=== PATIENT | male | born 1950 | race Caucasian/White ===

== ENCOUNTER → 2017-11-30 | Outpatient (CLI) | payer MEDICARE, BC, OTHER ==
[~2017-11-30] MED LIST: ALLOPURINOL300 MG PO; ASPIRIN 32325 MG/TAB PO; CARVEDILOL3.125 MG PO; COREG12.5 MG PO; JANUVIA100 MG PO; LANOXIN0.125 MG PO; LANTUS SOLOS100 U/ML SC; LASIX40 MG PO; NITROSTAT0.4 MG SL; NOVOLOG FLEX100 U/ML SC; NOVOLOG100 U/ML SQ; PLAVIX 75MG TAB75 MG PO; PROTONIX 40MG T40 MG PO; TRICOR145 MG PO; VASOTEC5 MG PO; VYTORIN 10 MG-21 TAB PO; WELCHOL625 MG PO
== END ==
LOC: COL.VAS 08:39
DX: I65.23 Occlusion and stenosis of bilateral carotid arteries (principal)

== ENCOUNTER 2021-04-29 13:43 | Outpatient (RCR) | payer MEDICARE, BC, OTHER | END 2021-04-30 | disposition home or self-care (01) | LOC: COL.CR | DX: Z48.812 Encounter for surgical aftercare following surgery on the circulatory system (principal); Z98.61 Coronary angioplasty status; I25.110 Atherosclerotic heart disease of native coronary artery with unstable angina pectoris ==

== ENCOUNTER 2021-05-20 13:07 | Outpatient (RCR) | payer MEDICARE, BC, OTHER | END 2021-06-17 15:07 | disposition home or self-care (01) | LOC: COL.CR 13:07 | DX: Z48.812 Encounter for surgical aftercare following surgery on the circulatory system (principal); Z95.5 Presence of coronary angioplasty implant and graft ==